=== PATIENT | female | born 1960 | race Caucasian/White ===

== ENCOUNTER 2017-06-18 15:04 | Emergency (ER) | payer MEDICARE, OTHER ==
[2017-06-18 15:07] VITALS: BP 111/65; PULSE 81; RESP 18; TEMP 98.9; O2SAT 74
[2017-06-18 15:18] VITALS: BP 105/63; PULSE 77; RESP 18; O2SAT 100
[2017-06-18] MEDS ORDERED: SODIUM CHLORIDE 0.9% FLUSH 10 ML FLUSH IVF PRN (15:30)
--- NOTE | 2017-06-18 15:41 | PD ---
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 Patient is followed at [facility] for this. Patient presents the emergency department with a several week history of increasing fatigue and lethargy, she states she has fallen several times but has not passed out, but states that one time she did fall and had some minimal left-sided rib pain. She states it did not feel like her chest pain was underneath her rib cage. She denies any fevers, endorses a dry cough, no leg swelling, no frothy sputum. States symptoms are moderate to severe, gradually worsening over the past few weeks, context and associated sinus symptoms as above. PFSH Past Medical History Narrative Medical COPD, asthma, ?: Not Past Surgical History Narrative Surgical Right lung transplant, left hip replacement, hysterectomy. Social History Alcohol Use: Yes (Occasional) Tobacco Use: No (Quit 1993) Substance Use: No Allergies-Medications (Allergen,Severity, Reaction): Coded Allergies: No Known Allergies (Verified Allergy, Unknown, 06/18/17) Reported Meds & Prescriptions Reported Meds & Active Scripts Active Reported Vitamin D-400 (Cholecalciferol) 400 Unit Tab 400 Units PO DAILY Ventolin Hfa 18 GM Inh (Albuterol Sulfate) 90 Mcg/Act Aer 2 Puff INH Q4-6H PRN Spiriva Handihaler (Tiotropium Inh) 18 Mcg Cap 18 Mcg INH DAILY 1 capsule = 18 mcg Tacrolimus 0.5 Mg Cap 0.5 Mg PO DAILY Bactrim DS (Sulfamethoxazole-Trimethoprim) 800-160 Mg Tab 1 Tab PO EVERY OTHER DAY Prednisone 5 Mg Tab 5 Mg PO DAILY Omeprazole 40 Mg Cap 40 Mg PO DAILY Metoprolol Tartrate 50 Mg Tab 50 Mg PO BID Magnesium Oxide 400 Mg Tab 400 Mg PO BID Gabapentin 600 Mg Tab 600 Mg PO BID Cetirizine (Cetirizine HCl) 10 Mg Chew 10 Mg PO DAILY Calcium Carbonate 1,500 Mg Tab 650 Mg PO DAILY 1,500 mg calcium carbonate (600 mg elemental calcium) Symbicort Inh (Budesonide/Formoterol Fumarate) 160-4.5 Mcg/Act Aero 1 Puff INH Q12HR Vitamin B Complex (B-Complex Vitamins) 1 Tab 1 Tab PO DAILY Azathioprine 50 Mg Tab 25 Mg PO DAILY Hazardous agent use appropriate precautions for handling and disposal. Atorvastatin (Atorvastatin Calcium) 40 Mg Tab 40 Mg PO HS Alprazolam 0.5 Mg Tab 0.5 Mg PO BID PRN Fluoxetine (Fluoxetine HCl) 20 Mg Tab 20 Mg PO DAILY Review of Systems Except as stated in HPI: all other systems reviewed are Neg Physical Exam Narrative GENERAL: Well-developed well-nourished, no obvious distress SKIN: Focused skin assessment warm/dry. HEAD: Atraumatic. Normocephalic. EYES: Pupils equal and round. No scleral icterus. No injection or drainage. ENT: No nasal bleeding or discharge. Mucous membranes pink and moist. NECK: Trachea midline. No JVD. CARDIOVASCULAR: Regular rate and rhythm. No murmur appreciated. RESPIRATORY: No accessory muscle use. Clear to auscultation. Breath sounds equal bilaterally. GASTROINTESTINAL: Abdomen soft, non-tender, nondistended. Hepatic and splenic margins not palpable. MUSCULOSKELETAL: No obvious deformities. No clubbing. No cyanosis. No edema. NEUROLOGICAL: Awake and alert. No obvious cranial nerve deficits. Motor grossly within normal limits. Normal speech. PSYCHIATRIC: Appropriate mood and affect; insight and judgment normal. Data Data Last Documented VS Vital Signs Date Time Temp Pulse Resp B/P (MAP) Pulse Ox O2 Delivery O2 Flow Rate FiO2 06/18/17 16:01 75 22 90 Room Air 06/18/17 15:58 15.00 06/18/17 15:58 06/18/17 15:07 98.9 Orders Orders Electrocardiogram (06/18/17 15:18) Ckmb (Isoenzyme) Profile (06/18/17 15:18) Complete Blood Count With Diff (06/18/17 15:18) Comprehensive Metabolic Panel (06/18/17 15:18) Magnesium (Mg) (06/18/17 15:18) Prothrombin Time / Inr (Pt) (06/18/17 15:18) Act Partial Throm Time (Ptt) (06/18/17 15:18) Troponin I (06/18/17 15:18) Ecg Monitoring (06/18/17 15:18) Iv Access Insert/Monitor (1/29/18 15:18) Oximetry (06/18/17 15:18) Oxygen Administration (06/18/17 15:18) Sodium Chloride 0.9% Flush (Ns Flush) (06/18/17 15:30) Chest, Pa & Lat (06/18/17 15:18) Blood Gas Venous (Vbg) (06/18/17 15:18) Westergren Sedimentation Rate (06/18/17 17:28) CKMB (06/18/17 16:00) CKMB% (06/18/17 16:00) Aspirin Chew (Aspirin Chew) (06/18/17 18:30) C-Reactive Protein (Crp) (06/18/17 18:26) Radiology Film Requests (06/18/17 ) Labs Laboratory Tests Test 06/18/17 16:00 06/18/17 16:21 White Blood Count 9.2 TH/MM3 Red Blood Count 4.19 MIL/MM3 Hemoglobin 13.5 GM/DL Hematocrit 40.1 % Mean Corpuscular Volume 95.7 FL Mean Corpuscular Hemoglobin 32.3 PG Mean Corpuscular Hemoglobin Concent 33.7 % Red Cell Distribution Width 14.2 % Platelet Count 197 TH/MM3 Mean Platelet Volume 8.2 FL Neutrophils (%) (Auto) 77.7 % Lymphocytes (%) (Auto) 11.3 % Monocytes (%) (Auto) 9.9 % Eosinophils (%) (Auto) 0.6 % Basophils (%) (Auto) 0.5 % Neutrophils # (Auto) 7.2 TH/MM3 Lymphocytes # (Auto) 1.0 TH/MM3 Monocytes # (Auto) 0.9 TH/MM3 Eosinophils # (Auto) 0.1 TH/MM3 Basophils # (Auto) 0.0 TH/MM3 CBC Comment DIFF FINAL Differential Comment Erythrocyte Sedimentation Rate 9 mm/hr Prothrombin Time 10.8 SEC Prothromb Time International Ratio 1.1 RATIO Activated Partial Thromboplast Time 27.5 SEC Blood Urea Nitrogen 16 MG/DL Creatinine 0.99 MG/DL Random Glucose 103 MG/DL Total Protein 6.8 GM/DL Albumin 3.4 GM/DL Calcium Level 8.5 MG/DL Magnesium Level 1.8 MG/DL Alkaline Phosphatase 102 U/L Aspartate Amino Transf (AST/SGOT) 25 U/L Alanine Aminotransferase (ALT/SGPT) 19 U/L Total Bilirubin 0.5 MG/DL Sodium Level 136 MEQ/L Potassium Level 4.6 MEQ/L Chloride Level 99 MEQ/L Carbon Dioxide Level 33.2 MEQ/L Anion Gap 4 MEQ/L Estimat Glomerular Filtration Rate 58 ML/MIN Total Creatine Kinase 257 U/L Creatine Kinase MB 1.7 NG/ML Creatine Kinase MB % 0.7 % Troponin I 0.99 NG/ML Blood Gas Puncture Site LINE Blood Gas Patient Temperature 98.6 Venous Blood pH 7.34 Venous Blood Partial Pressure CO2 63 mmHg Venous Blood Partial Pressure O2 52 mmHg Venous Blood HCO3 33 mmol/L Venous Blood Oxygen Saturation 82 % Venous Blood Oxygen Content 15.5 Vol % Venous Blood Base Excess 7.3 mmol/L Oxygen Delivery Device NASAL CANNULA Blood Gas Liter Flow 4 L/M MDM Medical Decision Making Medical Screen Exam Complete: Yes Emergency Medical Condition: Yes Differential Diagnosis Fall, ACS, FL, transplant rejection possible but unlikely, pneumonia, Narrative Course Patient roomed in the emergency department, initially with quite low saturation 57 on room air, the patient is not on oxygen at home. She has been falling but not passing out according to her, she has multiple skin abrasions on bilateral upper extremities, she states she has been taking her immunosuppressants as prescribed. She was placed on nonrebreather and her saturation quickly kevin to 100%, she was weaned to nasal cannula at 4 L. Chest x-ray shows the following results Last 24 hours Impressions Chest X-Ray 06/18/17 1518 Signed Impressions: Service Date/Time: Sunday, June 18, 2017 15:33 - CONCLUSION: 1. Pleural-parenchymal density right lung with volume loss and postsurgical changes. No prior studies available for comparison. Active disease cannot be excluded. Buddy Sanchez MD Patient blood work was significant for an elevated troponin at 0.99. Patient's chest pain is not reproducible on the left flank and there is no bruising, however she is not having any active chest pain at this time. I discussed the case with Dr. Zachariah Steinberg who is the on-call physician for the transplant service at [facility] we discussed the patient at length, he would like the patient to be transferred to [facility] for further workup as they are familiar with her, we have discussed the elevated troponin at this time and aspirin will be given only per his recommendations, a CT PE protocol was initially ordered but he would like to hold off on this until he is able to evaluate the patient and I think this is reasonable as he knows the patient better than I. Recommendations were discussed with the patient and she is agreeable to transfer , she is stable for the floor is doing much better on 4 L nasal cannula again no active chest pain and on my revisit she is sleeping soundly easily arousable in no obvious distress and her saturations are 96 on 4 L nasal cannula. Patient has been stabilized the best my ability for transfer by ground Critical Care Narrative Aggregate critical care time was 35 minutes. Time to perform other separately billable procedures was not included in the critical care time. My time did not include minutes spent treating any other patients simultaneously or on activities that did not directly contribute to the patient's treatment. The services I provided to this patient were to treat and/or prevent clinically significant deterioration that could result in: , disability, organ failure I provided critical care services requiring my management, as noted below: Chart data review, documentation time, medication orders and management, vital sign assessments/reviewing monitor data, ordering and reviewing lab tests, ordering and interpreting/reviewing x-rays and diagnostic studies, care of the patient and discussion of the patient with the admitting physicians. Diagnosis Primary Impression: NSTEMI (non-ST elevated myocardial infarction) Additional Impression: Acute respiratory failure with hypoxia Disposition: 70 TRANSFER TO OTHER FACILITY Condition: Stable Raymond Walton MD Jun 18, 2017 15:41
--- NOTE | 2017-06-18 15:48 | RADRPT ---
EXAM DATE/TIME: 06/18/2017 15:33 [facility] COMPARISON: No previous studies available for comparison. INDICATIONS : Short of breath MEDICAL HISTORY : Hypertension. SURGICAL HISTORY : Heart transplant ENCOUNTER: Initial ACUITY: 2 weeks PAIN SCORE: 0/10 LOCATION: chest FINDINGS: PA and lateral views of the chest demonstrate pleural-parenchymal density throughout the right lung. There is volume loss. Postsurgical changes on the right. Left lung relatively clear. Osseous structu res are intact. CONCLUSION: 1. Pleural-parenchymal density right lung with volume loss and postsurgical changes. No prior studies available for comparison. Active disease cannot be excluded. Buddy Sanchez MD on June 18, 2017 at 15:44 Board Certified Radiologist. This report was verified electronically.
[2017-06-18 15:58] VITALS: RESP 24; O2SAT 99
[2017-06-18] MEDS ORDERED: PRED5TAB PO (16:35)
[2017-06-18] MEDS ORDERED: SPIRCAP INH (16:35)
[2017-06-18] MEDS ORDERED: TACR0.5C PO (16:35)
[2017-06-18] MEDS ORDERED: MAGN400T2 PO (16:35)
[2017-06-18] MEDS ORDERED: FLUO1TAB3 PO (16:35)
[2017-06-18] MEDS ORDERED: ALPR0.5T3 PO (16:35)
[2017-06-18] MEDS ORDERED: VENTAER INH (16:35)
[2017-06-18] MEDS ORDERED: SYMB160A INH (16:35)
[2017-06-18] MEDS ORDERED: VITATAB56 PO (16:35)
[2017-06-18] MEDS ORDERED: METO50TA PO (16:35)
[2017-06-18] MEDS ORDERED: CETI10CH PO (16:35)
[2017-06-18] MEDS ORDERED: BACT800T5 PO (16:35)
[2017-06-18] MEDS ORDERED: OMEP40CA2 PO (16:35)
[2017-06-18] MEDS ORDERED: ATOR40TA16 PO (16:35)
[2017-06-18] MEDS ORDERED: GABA600T PO (16:35)
[2017-06-18] MEDS ORDERED: VITATAB11 PO (16:35)
[2017-06-18] MEDS ORDERED: AZAT50 PO (16:35)
[2017-06-18] MEDS ORDERED: CALC600T4 PO (16:35)
[2017-06-18 16:52] LABS: AUTOMATED NEUTROPHIL # 7.2 TH/MM3 (1.8-7.7); BASOPHIL % 0.5 % (0.0-2.0); EOSINOPHIL # 0.1 TH/MM3 (0-0.4); EOSINOPHIL % 0.6 % (0.0-4.0); HEMATOCRIT 40.1 % (35.0-46.0); HEMOGLOBIN 13.5 GM/DL (11.6-15.3); LYMPH % 11.3 % (9.0-44.0); MEAN CELL VOLUME 95.7 FL (80.0-100.0); MEAN CORPUSCULAR HEMOGLOBIN 32.3 PG (27.0-34.0); MEAN CORPUSCULAR HGB CONC 33.7 % (32.0-36.0); MEAN PLATELET VOLUME 8.2 FL (7.0-11.0); MONO % 9.9 % (0.0-8.0); MONOCYTE # 0.9 TH/MM3 (0-0.9); NEUT % 77.7 % (16.0-70.0); PLATELET COUNT 197 TH/MM3 (150-450); RED BLOOD COUNT 4.19 MIL/MM3 (4.00-5.30); RED CELL DISTRIBUTION WIDTH 14.2 % (11.6-17.2); WHITE BLOOD COUNT 9.2 TH/MM3 (4.0-11.0)
[2017-06-18 17:00] LABS: INTERNATIONAL NORMALIZED RATIO 1.1 RATIO; PROTHROMBIN TIME - PATIENT 10.8 SEC (9.8-11.6)
[2017-06-18 17:10] LABS: ALT (GPT) 19 U/L (10-53)
[2017-06-18 17:39] LABS: ALBUMIN 3.4 GM/DL (3.4-5.0); ALKALINE PHOSPHATASE 102 U/L (45-117); AST (GOT) 25 U/L (15-37); BICARBONATE 33.2 MEQ/L (21.0-32.0); BLOOD UREA NITROGEN 16 MG/DL (7-18); CALCIUM 8.5 MG/DL (8.5-10.1); CHLORIDE 99 MEQ/L (98-107); CREATININE 0.99 MG/DL (0.50-1.00); GLOMERULAR FILTRATION RATE 58 ML/MIN (>89); GLUCOSE,RANDOM 103 MG/DL (74-106); MAGNESIUM 1.8 MG/DL (1.5-2.5); SODIUM (NA) 136 MEQ/L (136-145); TOTAL BILIRUBIN ADULT 0.5 MG/DL (0.2-1.0); TOTAL PROTEIN 6.8 GM/DL (6.4-8.2)
[2017-06-18 17:55] LABS: TROPONIN I 0.99 NG/ML (0.02-0.05)
[2017-06-18] MEDS ORDERED: ASPIRIN 81 MG CHEW TAB CHEW ONE (18:30)
[2017-06-18 18:42] VITALS: BP 138/78; PULSE 79; RESP 18; O2SAT 97
--- NOTE | 2017-06-20 01:02 | EKG ---
Date Performed: 06/18/2017 Time Performed: 15:22:30 PTAGE: 56 years EKG: Sinus rhythm POSSIBLE RIGHT VENTRICULAR CONDUCTION DELAY BORDERLINE ECG PREVIOUS TRACING : 06/16/2017 01.20 DOCTOR: Delonte Fernandez Interpretating Date/Time 06/20/2017 01:01:07
== END 2017-06-18 20:50 | disposition short-term general hospital (02) ==
LOC: NEPE 15:04
DX: I21.4 Non-ST elevation (NSTEMI) myocardial infarction (principal); J96.01 Acute respiratory failure with hypoxia; J44.9 Chronic obstructive pulmonary disease, unspecified; I10 Essential (primary) hypertension; Z94.2 Lung transplant status; Z98.890 Other specified postprocedural states; Z90.710 Acquired absence of both cervix and uterus; Z96.642 Presence of left artificial hip joint; Z79.899 Other long term (current) drug therapy
CPT/HCPCS: 71046; 80053; 82550; 82552; 82805; 83735; 84484; 85025; 85610; 85652; 85730; 86140; 93005; 99291